=== PATIENT | female | born 1965 | race Caucasian/White ===

== ENCOUNTER 2019-03-04 21:01 | Inpatient (IN) | payer OTHER ==
[2019-03-04 21:57] LABS: Basophils % 0.3 % (0-1.3); Eosinophils % 0.1 % (0-4.4); Hematocrit 44.4 % (36.0-45.0); Lymphocytes % 8.5 % (15.3-44.8); MPV 7.9 fL (7.6-11.3); Monocytes % 5.9 % (3.3-12.3); RBC Red Blood Cell Count 4.91 M/uL (3.86-4.86)
[2019-03-04 22:16] LABS: Protime INR 1.02
[2019-03-04 22:18] LABS: ALT/SGPT 30 U/L (12-78); AST/SGOT 19 U/L (15-37); Albumin 3.7 g/dL (3.4-5.0); Alkaline Phosphatase 114 U/L (45-117); BUN Blood Urea Nitrogen 9 mg/dL (7-18); Bicarbonate 31 mmol/L (21-32); Bilirubin Direct 0.1 mg/dL (0-0.2); Bilirubin Total 0.5 mg/dL (0.2-1.0); Glucose Level 114 mg/dL (74-106); NT PRO-BNP 177 pg/mL (<125); Potassium 3.7 mmol/L (3.5-5.1); Protein, Total 7.9 g/dL (6.4-8.2); Sodium Level 142 mmol/L (136-145); Troponin (Emerg Dept Use Only) < 0.02 ng/mL (0.0-0.045)
[2019-03-04 22:22] LABS: Urine Blood 1+ (NEG); Urine Glucose NEGATIVE (NEG); Urine Protein 1+ (NEG); Urine Specific Gravity 1.025 (1.005-1.030); Urine pH 5.5 (5.0-7.0)
[2019-03-04 22:22] LABS: Urine Bacteria <20 /HPF (<20); Urine Culture Reflex Order NOT NEEDED; Urine RBC NONE SEEN /HPF (NONE SEEN)
[2019-03-04] MEDS ORDERED: PROMETHAZINE 25 MG/ML VIAL ONE (22:27)
[2019-03-04 23:07] LABS: Blood Morphology Comment NOT SEEN (NOT SEEN); Platelet Estimate ADEQ
[2019-03-05] MEDS ORDERED: PIPER/TAZO/NS 3.375gm 3.375 GM/100 ML BAG ONE (00:05)
--- NOTE | 2019-03-05 00:06 | EDPHYS ---
Physician Documentation [facility] Name: Kindra Alvarez Age: 53 yrs Sex: Female : 1965 Arrival Date: 03/04/2019 Time: 21:02 Bed 14 Private MD: ED Physician Abdoulaye Lei HPI: 03/04 22:35 This 53 yrs old Female presents to ER via Ambulatory with complaints of snw Abdominal Pain. 22:35 The patient presents with abdominal pain in the upper abdomen. Onset: The snw symptoms/episode began/occurred gradually, 1 month(s) ago, and became persistent today. The symptoms do not radiate. Associated signs and symptoms: Pertinent positives: nausea. The symptoms are described as intermittent. Severity of pain: At its worst the pain was moderate severe. only over the past month. The patient has not recently seen a physician. SYSTEMS ADMIN: 21:05 LMP N/A - Post-menopause fc Historical: - Allergies: 21:21 No Known Allergies; fc - Home Meds: 21:21 None [Active]; fc - PMHx: 21:21 None; fc - PSHx: 21:21 ; fc - Immunization history:: Last tetanus immunization: up to date. - Social history:: Smoking status: Patient/guardian denies using tobacco, Patient/guardian denies using alcohol, street drugs. - Ebola Screening: : Patient negative for fever greater than or equal to 101.5 degrees Fahrenheit, and additional compatible Ebola Virus Disease symptoms Patient denies exposure to infectious person Patient denies travel to an Ebola-affected area in the 21 days before illness onset. ROS: 22:31 Constitutional: Negative for fever, chills, and weight loss, Eyes: Negative for injury, snw pain, redness, and discharge, ENT: Negative for injury, pain, and discharge, Neck: Negative for injury, pain, and swelling, Cardiovascular: Negative for chest pain, palpitations, and edema, Respiratory: Negative for shortness of breath, cough, wheezing, and pleuritic chest pain, Back: Negative for injury and pain, : Negative for injury, bleeding, discharge, and swelling, MS/Extremity: Negative for injury and deformity, Skin: Negative for injury, rash, and discoloration, Neuro: Negative for headache, weakness, numbness, tingling, and seizure, Psych: Negative for depression, anxiety, suicide ideation, homicidal ideation, and hallucinations. 22:31 Abdomen/GI: Positive for abdominal pain, nausea, of the epigastric area, right upper quadrant and left upper quadrant, Negative for radiation to back. Exam: 22:23 Constitutional: This is a well developed, well nourished patient who is awake, alert, snw and in no acute distress. Head/Face: Normocephalic, atraumatic. Eyes: Pupils equal round and reactive to light, extra-ocular motions intact. Lids and lashes normal. Conjunctiva and sclera are non-icteric and not injected. Cornea within normal limits. Periorbital areas with no swelling, redness, or edema. ENT: Nares patent. No nasal discharge, no septal abnormalities noted. Tympanic membranes are normal and external auditory canals are clear. Oropharynx with no redness, swelling, or masses, exudates, or evidence of obstruction, uvula midline. Mucous membranes moist. Neck: Trachea midline, no thyromegaly or masses palpated, and no cervical lymphadenopathy. Supple, full range of motion without nuchal rigidity, or vertebral point tenderness. No Meningismus. Chest/axilla: Normal chest wall appearance and motion. Nontender with no deformity. No lesions are appreciated. Cardiovascular: Regular rate and rhythm with a normal S1 and S2. No gallops, murmurs, or rubs. Normal PMI, no JVD. No pulse deficits. Respiratory: Lungs have equal breath sounds bilaterally, clear to auscultation and percussion. No rales, rhonchi or wheezes noted. No increased work of breathing, no retractions or nasal flaring. Back: No spinal tenderness. No costovertebral tenderness. Full range of motion. Skin: Warm, dry with normal turgor. Normal color with no rashes, no lesions, and no evidence of cellulitis. MS/ Extremity: Pulses equal, no cyanosis. Neurovascular intact. Full, normal range of motion. Neuro: Awake and alert, GCS 15, oriented to person, place, time, and situation. Cranial nerves II-XII grossly intact. Motor strength 5/5 in all extremities. Sensory grossly intact. Cerebellar exam normal. Normal gait. Psych: Awake, alert, with orientation to person, place and time. Behavior, mood, and affect are within normal limits. 22:23 Abdomen/GI: Inspection: obese Bowel sounds: normal, in all quadrants, Palpation: moderate abdominal tenderness, in the epigastric area, right upper quadrant and left upper quadrant. Vital Signs: 21:05 BP 158 / 96; Pulse 77; Resp 18; Temp 98.5(O); Pulse Ox 99% on R/A; Weight 90.72 kg (R); fc Height 5 ft. 5 in. (165.10 cm) (R); Pain 8/10; 22:30 BP 170 / 93; Pulse 63; Resp 16; Pulse Ox 97% on R/A; jb4 03/05 00:00 BP 127 / 78; Pulse 72; Resp 16; Pulse Ox 98% on R/A; jb4 01:00 BP 141 / 85; Pulse 71; Resp 16; Temp 99.1(O); Pulse Ox 97% on R/A; jb4 03/04 21:05 Body Mass Index 33.28 (90.72 kg, 165.10 cm) fc MDM: 03/04 21:44 Patient medically screened. snw 03/05 00:04 Data reviewed: vital signs, nurses notes. Data interpreted: Pulse oximetry: on room air snw is 97 %. Interpretation: normal. Counseling: I had a detailed discussion with the patient and/or guardian regarding: the historical points, exam findings, and any diagnostic results supporting the discharge/admit diagnosis, the presence of at least one elevated blood pressure reading (>120/80) during this emergency department visit, lab results, radiology results, the need for further work-up and treatment in the hospital. Physician consultation: Aparna Silveira MD was called at 00:05, was contacted at 00:05, regarding admission, to the telemetry unit. to the medical/surgical unit. 03/04 21:28 Order name: Basic Metabolic Panel; Complete Time: 22:21 snw 03/04 21:28 Order name: CBC with Diff; Complete Time: 23:09 snw 03/04 21:28 Order name: LFT's; Complete Time: 22:21 snw 03/04 21:28 Order name: Magnesium; Complete Time: 22:21 snw 03/04 21:28 Order name: NT PRO-BNP; Complete Time: 22:21 snw 03/04 21:28 Order name: PT-INR; Complete Time: 22:21 snw 03/04 21:28 Order name: Troponin (emerg Dept Use Only); Complete Time: 22:21 snw 03/04 21:28 Order name: XRAY Chest (1 view) formerly [facility] 03/04 21:54 Order name: Urine Microscopic Only; Complete Time: 22:22 mt 03/04 22:02 Order name: US Abdomen Limited snw 03/04 22:12 Order name: Manual Differential; Complete Time: 23:09 EDMS 03/04 22:19 Order name: Urine Dipstick--Ancillary (enter results); Complete Time: 22:31 fc 03/04 21:28 Order name: EKG; Complete Time: 21:30 snw 03/04 21:28 Order name: Cardiac monitoring; Complete Time: 21:50 snw 03/04 21:28 Order name: EKG - Nurse/Tech; Complete Time: 21:49 snw 03/04 21:28 Order name: IV Saline Lock; Complete Time: 21:49 snw 03/04 21:28 Order name: Labs collected and sent; Complete Time: 21:49 snw 03/04 21:28 Order name: O2 Per Protocol; Complete Time: 21:49 snw 03/04 21:28 Order name: O2 Sat Monitoring; Complete Time: 21:49 snw 03/04 21:54 Order name: Urine Dipstick-Ancillary (obtain specimen); Complete Time: 21:54 mt Administered Medications: 03/04 22:20 Drug: Phenergan 12.5 mg Route: IVP; Site: right antecubital; [facility] 22:50 Follow up: Response: No adverse reaction; Nausea is decreased [facility] 03/05 00:05 Drug: Zosyn 3.375 grams Route: IVPB; Infused Over: 60 mins; Site: right antecubital; 4 01:06 Follow up: Response: No adverse reaction; IV Status: Completed infusion; IV Intake: jb4 100ml Disposition: 03/05/19 00:04 Hospitalization ordered by Aparna Silveira for Inpatient Admission. Preliminary diagnosis are Cholecystitis, Essential (primary) hypertension. - Bed requested for Telemetry/MedSurg (Inpatient). - Status is Inpatient Admission. jb4 - Condition is Stable. - Problem is new. - Symptoms have worsened. UTI on Admission? No Signatures: Dispatcher [employer] EDMS Allison Lopez RN RN Kelly Swenson, TELEPHONE STATION INSTALLER-C TELEPHONE STATION INSTALLER-Csnw Marianela Hernandez, RN RN Franklin Campuzano, MIGEL RN jb4 [facility] Corrections: (The following items were deleted from the chart) 00:46 00:04 Hospitalization Ordered by Aparna Silveira MD for Inpatient Admission. Preliminary diagnosis is Cholecystitis; Essential (primary) hypertension. Bed requested for Telemetry/MedSurg (Inpatient). Status is Inpatient Admission. Condition is Stable. Problem is new. Symptoms have worsened. UTI on Admission? No. snw 02:17 00:46 03/05/2019 00:04 Hospitalization Ordered by Aparna Silveira MD for Inpatient jb Admission. Preliminary diagnosis is Cholecystitis; Essential (primary) hypertension. Bed requested for Telemetry/MedSurg (Inpatient). Status is Inpatient Admission. Condition is Stable. Problem is new. Symptoms have worsened. UTI on Admission? No. mw
--- NOTE | 2019-03-05 00:06 | ER ---
Nurse's Notes [facility] Name: Kindra Alvarez Age: 53 yrs Sex: Female : 1965 Arrival Date: 03/04/2019 Time: 21:02 Bed 14 Private MD: Diagnosis: Cholecystitis;Essential (primary) hypertension Presentation: 03/04 21:05 Presenting complaint: Patient states: that she has been having stomach issues on and fc off x 1 month. Then last night this particular episode started along with nausea then approx 1 hr ago she started to have vomiting and diarrhea. Pain is all over abd. Transition of care: patient was not received from another setting of care. Onset of symptoms was March 03, 2019 at 23:00. Risk Assessment: Do you want to hurt yourself or someone else? Patient reports no desire to harm self or others. Initial Sepsis Screen: Does the patient meet any 2 criteria? No. Patient's initial sepsis screen is negative. Does the patient have a suspected source of infection? No. Patient's initial sepsis screen is negative. Care prior to arrival: Medication(s) given: Pepto at 2030 and Gax Ex at 1900. 21:05 Method Of Arrival: Ambulatory fc 21:05 Acuity: KAREEM 3 fc OBSTETRICS NURSE: 21:05 LMP N/A - Post-menopause fc Historical: - Allergies: 21:21 No Known Allergies; fc - Home Meds: 21:21 None [Active]; fc - PMHx: 21:21 None; fc - PSHx: 21:21 ; fc - Immunization history:: Last tetanus immunization: up to date. - Social history:: Smoking status: Patient/guardian denies using tobacco, Patient/guardian denies using alcohol, street drugs. - Ebola Screening: : Patient negative for fever greater than or equal to 101.5 degrees Fahrenheit, and additional compatible Ebola Virus Disease symptoms Patient denies exposure to infectious person Patient denies travel to an Ebola-affected area in the 21 days before illness onset. Screenin:20 Abuse screen: Denies threats or abuse. Nutritional screening: No deficits noted. fc Tuberculosis screening: Fall Risk None identified. Assessment: 21:10 General: Appears in no apparent distress. uncomfortable, Behavior is calm, cooperative, jb4 appropriate for age. Pain: Complains of pain in epigastric area, right upper quadrant and left upper quadrant Pain does not radiate. Pain currently is 8 out of 10 on a pain scale. Quality of pain is described as pressure. Neuro: Level of Consciousness is awake, alert, obeys commands, Oriented to person, place, time, situation. Cardiovascular: Patient's skin is warm and dry. Respiratory: Airway is patent Respiratory effort is even, unlabored, Respiratory pattern is regular, symmetrical. GI: Abdomen is non-distended, obese, Bowel sounds present X 4 quads. Abd is soft and non tender X 4 quads. Reports diarrhea, nausea, vomiting. : No signs and/or symptoms were reported regarding the genitourinary system. EENT: No signs and/or symptoms were reported regarding the EENT system. Derm: Skin is intact, Skin is pink, warm \T\ dry. Musculoskeletal: Circulation, motion, and sensation intact. 22:30 Reassessment: Patient appears in no apparent distress at this time. Patient and/or jb4 family updated on plan of care and expected duration. Pain level reassessed. Pt is resting with eyes closed respirations even and unlabored, nos/s of pain or distress noted at this time. Patient states feeling better. 03/05 00:00 Reassessment: Patient appears in no apparent distress at this time. No changes from [facility] previously documented assessment. Patient and/or family updated on plan of care and expected duration. Pain level reassessed. Patient states feeling better. 01:00 Reassessment: Patient appears in no apparent distress at this time. Patient and/or jb4 family updated on plan of care and expected duration. Pain level reassessed. Patient is alert, oriented x 3, equal unlabored respirations, skin warm/dry/pink. Vital Signs: 03/04 21:05 BP 158 / 96; Pulse 77; Resp 18; Temp 98.5(O); Pulse Ox 99% on R/A; Weight 90.72 kg (R); fc Height 5 ft. 5 in. (165.10 cm) (R); Pain 8/10; 22:30 BP 170 / 93; Pulse 63; Resp 16; Pulse Ox 97% on R/A; jb4 03/05 00:00 BP 127 / 78; Pulse 72; Resp 16; Pulse Ox 98% on R/A; jb4 01:00 BP 141 / 85; Pulse 71; Resp 16; Temp 99.1(O); Pulse Ox 97% on R/A; jb4 03/04 21:05 Body Mass Index 33.28 (90.72 kg, 165.10 cm) ED Course: 03/04 21:02 Patient arrived in ED. am2 21:05 Arm band placed on Patient placed in an exam room, on a stretcher. fc 21:05 Patient has correct armband on for positive identification. Placed in gown. Bed in low fc position. Call light in reach. Pulse ox on. NIBP on. 21:19 Triage completed. fc 21:27 Kelly Swenson FNP-C is PHCP. snw 21:27 Abdoulaye Lei MD is Attending Physician. snw 21:34 Franklin Campuzano RN is Primary Nurse. jb4 22:11 XRAY Chest (1 view) In Process Unspecified. EDMS 22:58 US Abdomen Limited In Process Unspecified. EDMS 22:58 Ultrasound completed. Patient tolerated well. sg3 03/05 00:04 Aparna Silveira MD is Hospitalizing Provider. snw 01:30 No provider procedures requiring assistance completed. Patient admitted, IV remains in jb4 place. Administered Medications: 03/04 22:20 Drug: Phenergan 12.5 mg Route: IVP; Site: right antecubital; jb4 22:50 Follow up: Response: No adverse reaction; Nausea is decreased jb4 03/05 00:05 Drug: Zosyn 3.375 grams Route: IVPB; Infused Over: 60 mins; Site: right antecubital; jb4 01:06 Follow up: Response: No adverse reaction; IV Status: Completed infusion; IV Intake: jb4 100ml Intake: 01:06 IV: 100ml; Total: 100ml. jb4 Outcome: 00:04 Decision to Hospitalize by Provider. snw 01:30 Admitted to Tele accompanied by tech, via wheelchair, room 431, with chart, Report jb4 called to MIGEL Blue 01:30 Condition: stable 01:30 Discharge instructions given to patient, Instructed on the need for admit, Demonstrated understanding of instructions. 02:17 Patient left the ED. jb4 Signatures: Dispatcher [employer] EDMS Kelly Swenson FNP-C MANAGER CULTURE-Csnw Marianela Hernandez, RN RN fc Franklin Campuzano RN RN jb4 Izzy Mora am Sujata Chen 3
--- NOTE | 2019-03-05 00:44 | P.HP ---
Certification for Inpatient Patient admitted to: Inpatient With expected LOS: >2 Midnights Practitioner: I am a practitioner with admitting privileges, knowledge of patient current condition, hospital course, and medical plan of care. Services: Services provided to patient in accordance with Admission requirements found in Title 42 Section 412.3 of the Code of Federal Regulations Patient History Date of Service: 03/05/19 Reason for admission: acute cholecystitis, cholelithiasis History of Present Illness: Ms Alvarez is a 53 years old woman with pretty benign past medical history, who start with recurrent episodes of abdominal pain since 1 month ago. The pain is localized on RUQ and epigastrium, worsening after having dinner most of the time. For the last 3 days, the pain has been worse. Last night, she also had nausea and vomiting. No fever or chills. Lab work shows leukocytosis 11.8K, and 5% bandemia, normal transaminases, bili and alk phos. Abdominal US remarkable for thickening gallbladder wall 8 mm, and multiple stones, official radiologist reading is still pending. Home medications list reviewed: Yes - Past Medical/Surgical History -: obesity -: - Family History Family History: Reviewed- Non-Contributory - Social History Smoking Status: Never smoker Alcohol use: Yes CD- Drugs: No Place of Residence: Home Review of Systems 10-point ROS is otherwise unremarkable Physical Examination - Physical Exam General: Alert, In no apparent distress HEENT: Atraumatic, PERRLA, Mucous membr. moist/pink, EOMI, Sclerae nonicteric Neck: Supple, 2+ carotid pulse no bruit, No LAD, Without JVD or thyroid abnormality Respiratory: Clear to auscultation bilaterally, Normal air movement Cardiovascular: Regular rate/rhythm, Normal S1 S2 Gastrointestinal: Normal bowel sounds, Tenderness (RUQ to palpation) Musculoskeletal: No tenderness Integumentary: No rashes Neurological: Normal speech, Normal strength at 5/5 x4 extr, Normal tone, Normal affect Lymphatics: No axilla or inguinal lymphadenopathy - Studies Laboratory Data (last 24 hrs) 03/04/19 21:45: PT 12.0, INR 1.02 03/04/19 21:45: WBC 11.8 H, Hgb 14.7, Hct 44.4, Plt Count 297 03/04/19 21:45: Sodium 142, Potassium 3.7, BUN 9, Creatinine 0.87, Glucose 114 H , Magnesium 2.0, Total Bilirubin 0.5, AST 19, ALT 30, Alkaline Phosphatase 114 Assessment and Plan - Problems (Diagnosis) (1) Acute cholecystitis Current Visit: Yes Status: Acute (2) Cholelithiasis Current Visit: Yes Status: Acute Qualifiers: Cholelithiasis location: gallbladder Cholecystitis presence: with cholecystitis Cholecystitis acuity: acute Biliary obstruction: without biliary obstruction Qualified Code(s): K80.00 - Calculus of gallbladder with acute cholecystitis without obstruction (3) Mildly obese Current Visit: Yes Status: Acute - Plan Ms Alvarez will be admitted to the hospital due to cholecystitis due to cholelithiasis. Will start empiric antibiotics, keep her NPO, IV fluids and symptomatic medication for nausea and pain. Consult Dr Kamara. - Advance Directives Does patient have a Living Will: No Does patient have a Durable POA for Healthcare: No - Code Status/Comfort Care Code Status Assessed: Yes Code Status: Full Code
[2019-03-05 02:06] VITALS: BMI 34.0
[2019-03-05] MEDS ORDERED: ACETAMINOPHEN 500 MG TAB PO PRN (02:09)
[2019-03-05] MEDS ORDERED: KETOROLAC 30 MG/ML INJ IV PRN (02:09)
[2019-03-05] MEDS ORDERED: KCL 20 MEQ/100 mL IVPB 20 MEQ/100 ML BAG IV SCH (02:25)
[2019-03-05] MEDS ORDERED: PROMETHAZINE 25 MG/ML VIAL IV PRN (02:36)
[2019-03-05] MEDS: METRONIDAZOLE 500mg IVPB 500 MG/100 ML BAG IV SCH ×2 (03:09→08:32)
[2019-03-05] MEDS: NA CHLORIDE 0.9% 1,000 ML IV SCH ×3 (03:09→16:32)
--- NOTE | 2019-03-05 08:46 | RAD REPORT ---
EXAM DESCRIPTION: RAD - Chest Single View - 03/04/2019 10:10 pm CLINICAL HISTORY: Abdominal pain COMPARISON: None. TECHNIQUE: AP portable chest image was obtained 2201 hours . FINDINGS: Lungs are clear. Hazy opacification over the left base secondary to overlying breast soft tissue and portable technique. Heart and vasculature are normal. No measurable pleural effusion and n o pneumothorax. No acute bony abnormality seen. No acute aortic findings suspected. IMPRESSION: No acute cardiopulmonary process.
[2019-03-05] MEDS ORDERED: CIPROFLOXACIN 400mg IV 400 MG/200 ML BAG IV SCH (09:00)
--- NOTE | 2019-03-05 09:24 | RAD REPORT ---
EXAM DESCRIPTION: US - Abdomen Exam Limited - 03/04/2019 10:58 pm CLINICAL HISTORY: 53 years Female ABD PAIN COMPARISON: None TECHNIQUE: Real-time sonography of the right upper abdomen was performed. FINDINGS: Echogenic foci with posterior shadowing are seen within the gallbladder consistent with ga llstones. Gallbladder wall measures 8 mm. No fluid is seen adjacent to the gallbladder. Common bile d uct measured 6 mm. Liver, pancreas and right kidney not evaluated. IMPRESSION: Cholelithiasis with gallbladder wall thickening. No extrahepatic biliary dilatation. Electronically signed by: Noa Nash MD 03/05/2019 12:39 AM CDT Due to temporary technical issues with the PACS/Fluency reporting system, reports are being signed by the in house radiologist as a courtesy to ensure prompt reporting. The interpreting radiologist is f ully responsible for the content of the report.
--- NOTE | 2019-03-05 12:52 | EKG ---
Test Date: 2019-03-04 Test Time: 21:46:49 Storage Architect: ISIDRO MEASUREMENT RESULTS: Intervals: Rate: 70 AR: 112 QRSD: 90 QT: 364 QTc: 393 [place]: P: 18 AR: 112 QRS: 16 T: 2 INTERPRETIVE STATEMENTS: Normal sinus rhythm T wave abnormality, consider anterior ischemia Abnormal ECG No previous ECG available for comparison Electronically Signed On 03-05-19 12:49:43 CDT by Avinash Gustafson
--- NOTE | 2019-03-05 14:12 | RAD REPORT ---
EXAM DESCRIPTION: NM - Hepatobiliary System Imagin - 03/05/2019 1:36 pm CLINICAL HISTORY: Abdominal pain, abnormal ultrasound COMPARISON: Ultrasound March 04 TECHNIQUE: The patient was administered 6.3 mCi Tc99m Choletec . Imaging of the right upper quadrant was performed initially for 60 minutes and extended an additional 90 minutes. FINDINGS: There is homogeneous uptake of radiopharmaceutical throughout the liver. There is no delay in visualization of the biliary tree or duodenum. The gallbladder never visualized is over the course of the examination. At the end of 2.5 hours there was no radiopharmaceutical remaining in the liver. No extravasation. IMPRESSION: Nonvisualization of the gallbladder. In a patient with cholelithiasis and gallbladder wa ll thickening, findings are consistent with an acute cholecystitis.
[2019-03-05] MEDS: PIPER/TAZO/NS 3.375gm 3.375 GM/100 ML BAG IVPB SCH (16:29)
--- NOTE | 2019-03-05 22:28 | PN ---
Date of Progress Note: 03/05/2019 Subjective: The patient seen and examined, chart reviewed, and case discussed with RN. The patient states her pain is better. Medications: List reviewed. Physical Examination: Vital Signs: Temperature 97.8, heart rate 71, blood pressure 125/78, respirations 18, O2 99% on room air. General: Awake, alert, and oriented x3, not in any acute distress, obese female. CV: S1, S2. Regular rate and rhythm. Peripheral pulses present. Respiratory: No wheezing. No stridor. No use of accessory muscles. Gastrointestinal: Abdomen is soft. Mild tenderness to palpation. No guarding or rigidity. Positiv e bowel sounds. Extremities: No clubbing, cyanosis, or edema. Neuro: Nonfocal. Cranial nerves 2-12 intact grossly. Speech is normal. Skin: No rashes. Normal skin turgor. Laboratory Data: Labs are pending. Imaging Studies: HIDA scan shows nonvisualization of the gallbladder. Findings were consistent with acute cholecystitis. Assessment And Plan: A 53-year-old female with: 1.Acute cholecystitis. Continue with IV antibiotics. Appreciate surgical input. HIDA scan showed nonvisualization, consistent with acute cholecystitis. We will continue pain control, keep n.p.o., a nd continue IV fluids. 2.Cholelithiasis with acute cholecystitis without biliary obstruction. Surgery on board. We will l ikely need cholecystectomy. 3.Obesity, BMI 34. 4.Hyperglycemia, likely acute phase reactant. 5.DVT prophylaxis, SCDs. Continue IV antibiotics. Follow up with Surgery recommendations. Continue IV antibiotics for pain c ontrol. /EARNEST Voice ID: [id number] Report ID: [id number]
[2019-03-06] MEDS: PIPER/TAZO/NS 3.375gm 3.375 GM/100 ML BAG IVPB SCH ×3 (01:27→16:23)
[2019-03-06 06:29] LABS: Absolute Lymphocytes (CBC) 1.5 K/uL (0.7-4.9); Basophils % 0.6 % (0-1.3); Eosinophils % 2.7 % (0-4.4); Hematocrit 39.8 % (36.0-45.0); MPV 8.3 fL (7.6-11.3); Monocytes % 8.3 % (3.3-12.3); RBC Red Blood Cell Count 4.36 M/uL (3.86-4.86)
[2019-03-06 06:42] LABS: Albumin 2.8 g/dL (3.4-5.0); Bilirubin Total 0.6 mg/dL (0.2-1.0); Potassium 3.7 mmol/L (3.5-5.1); Protein, Total 6.1 g/dL (6.4-8.2)
[2019-03-06] MEDS: NA CHLORIDE 0.9% 1,000 ML IV SCH ×2 (08:09→18:09)
[2019-03-06] MEDS ORDERED: FENTANYL CITR 100 MCG/2 ML ONE (10:20)
[2019-03-06] MEDS ORDERED: MIDAZOLAM HCL 2 MG/2 ML INJ ONE (10:20)
[2019-03-06] MEDS ORDERED: LIDOCAINE 1% MPF 5 ML VIAL ONE (10:20)
[2019-03-06] MEDS ORDERED: PROPOFOL 200 MG/20 ML VIAL IV ONE (10:20)
[2019-03-06] MEDS ORDERED: ROCURONIUM 50 MG/5 ML VIAL IV ONE (10:21)
[2019-03-06] MEDS ORDERED: BUPIVACA 0.25%/EPI 0.0005% MDV 50 ML VIAL ONE (11:09)
[2019-03-06] MEDS ORDERED: NA CHLORIDE 0.9% 1,000 ML ONE (12:00)
--- NOTE | 2019-03-06 12:40 | P.OP ---
Preoperative diagnosis: Cholecystitis Postoperative diagnosis: Cholecystitis Primary procedure: Laparoscopic Cholecystectomy Anesthesia: GETA + Local Estimated blood loss: <10cc Specimen: Gallbladder Findings: Significant intra-abdominal adhesions, encased GB Complications: None Transferred to: Recovery Room Condition: Good
[2019-03-06] MEDS ORDERED: KETOROLAC 30 MG/ML INJ ONE (12:42)
[2019-03-06] MEDS ORDERED: GLYCOPYRROLATE 0.2 MG/ML SYR ONE (12:42)
[2019-03-06] MEDS ORDERED: NEOSTIGMINE 1 MG/ML -10 ML VIAL ONE (12:48)
[2019-03-06] MEDS ORDERED: ONDANSETRON 4 MG/2 ML VIAL ONE (12:48)
[2019-03-06] MEDS ORDERED: HYDROCODONE/APAP 7.5/325 MG TAB PO PRN (13:07)
[2019-03-06] MEDS: MEPERIDINE HCL 25 MG/0.5 ML ONE ×2 (13:15→13:20)
[2019-03-06] MEDS ORDERED: POTASSIUM CL SA 10 MEQ TAB PO ONE (16:30)
--- NOTE | 2019-03-06 19:56 | PN ---
Date of Progress Note: 03/06/2019 Subjective: The patient seen and examined. Chart reviewed and case discussed with RN and Dr. Gallo cox. The patient went for gallbladder surgery today and did well, did have multiple adhesions in case gallbladder. Medications: List reviewed. Physical Examination: Vital Signs: Temperature 97.4, heart rate 67, blood pressure 144/89, respirations 16, O2 97% on room air. General: Awake, alert, oriented x3. Obese female. No acute distress. CV: S1 and S2. No murmurs. Respiratory: Moving air well bilaterally. No wheezing. Gastrointestinal: Abdomen is soft, nontender, nondistended. Positive bowel sounds. No guarding or rigidity. Extremities: No clubbing, cyanosis, or edema. Neurologic: Nonfocal. Laboratory Data: Sodium 145, potassium 3.7, chloride 110, CO2 28, BUN 11, creatinine 0.69, glucose 8 5, calcium 8.1. WBC 6.1, H and H 13.2 and 39.8, platelets 256, neutrophils 63%. Assessment And Plan: A 53-year-old female with: 1.Acute cholecystitis status post laparoscopic cholecystectomy postoperative day #0. Surgery recomm ends observing the patient further due to the nature of her gallbladder disease. We will continue wi th Zosyn. Continue pain control and IV fluids. 2.Cholelithiasis with acute cholecystitis without biliary obstruction, stable. 3.Obesity, BMI 34. Counseled. 4.Hyperglycemia likely due to acute phase reactant. 5.Deep venous thrombosis prophylaxis with sequential compression device. Plan: Discharge in a.m. if continues to improve. We will start on clear liquids tonight. /EARNEST Voice ID: [id number] Report ID: [id number]
--- NOTE | 2019-03-06 23:47 | OP ---
Date of Procedure: 03/06/2019 Surgeon: Mumtaz Kamara MD, Preoperative Diagnosis: Cholecystitis. Postoperative Diagnosis: Cholecystitis. Procedure Performed: Laparoscopic cholecystectomy. Anesthesia: General endotracheal plus local with 0.25% Marcaine. Estimated Blood Loss: Less than 10 cc. Specimen: Gallbladder. Findings: 1.Significant intra-abdominal adhesions. 2.Encased gallbladder. 3.Abnormal gallbladder anatomy with a long redundant cystic artery running anterior on the surface o f the gallbladder. Complications: None. Disposition: Transferred to recovery room in good condition. Procedure In Detail: After informed consent was obtained, the patient was brought to the operating r oom, prepped and draped in the usual sterile fashion. After adequate anesthesia achieved and a supra umbilical area was anesthetized with 0.25% Marcaine and sharply incised, a 5-mm 0-degree optical troc ar was introduced into the abdomen without evidence of complication. Insufflation was obtained to 15 mmHg at this time. There was no injury to vital structures upon entry into the abdomen. Additional trocar site was chosen in the epigastrium. This similarly was anesthetized and sharply incised. A 5-mm trocar was introduced into the abdomen without evidence of complication. Additional trocar site was chosen in the right upper quadrant, similarly anesthetized and sharply incised. A 5-mm trocar w as introduced into the abdomen without evidence of complication. The umbilical trocar was then up-si zed to 12 mm under direct visualization without evidence of complication. The patient was positioned head up, right-side up position. Ratcheted grasper was used to grasp the patient's gallbladder, neo rita towards the patient's right shoulder. There were significant intra-abdominal adhesions between t he omentum, stomach and the duodenum and the gallbladder. These were taken down using both blunt and sharp dissection after the duodenum and stomach were removed safely using sharp dissection without i ncident or complication. Electrocautery was then used to take much of the adipose tissue off the ant erior surface of the gallbladder, however, this was thick and firmly adherent and the gallbladder wal l had significant adiposity to it. There were inflammatory changes consistent with acute cholecystit is to the anterior surface of the gallbladder. The gallbladder had essentially been encased after it was exposed. However, dissection continued down and the gallbladder was found to be somewhat contra cted with a somewhat long neck higher up than the normal anatomic position of the gallbladder. Addit ional structure was noted to be running on the anterior surface of the gallbladder, near the medial a spect of the gallbladder, far away from the edge of the liver and had a long course down from the por ta region. These 2 structures were encircled down near the Leelee pouch of the gallbladder, which was found to be higher on the anterior surface of the gallbladder. After these were encircled, the w indow was created posterior to see the liver in the posterior window and no additional structures wer e noted to be entering. Therefore, these 2 structures were identified as both the cystic duct and cy stic artery and a critical view of safety was obtained in this position. Titanium clips were doubly placed on the proximal side and singly placed on the distal side of both cystic duct and cystic arter y. The cystic duct was then ligated using Endo Wandy and the cystic artery was ligated using LigaSu re device between the Endo Wandy. The gallbladder was then removed from the hepatic fossa without e vidence of complication. There was no bleeding. No additional hemostatic maneuvers required at this time. The gallbladder was then placed in EndoCatch bag, removed through the umbilical trocar, sent off for pathologic examination. The area was copiously irrigated multiple times. There was minimal spillage of bile and small stones at this point. These were all suctioned out quite easily prior to irrigation and after irrigation, there was no bile spillage and the abdomen was completely cleaned. The clips were found to be in good anatomic position. There was no bleeding from the hepatic fossa a t this point. The patient was then positioned in neutral position. Additional irrigation was used a nd suctioned out. The umbilical trocar was then removed. The gallbladder sent off for pathologic ex amination and the umbilical trocar site was closed using a Rakan-Sherrell suture passer and 0 Vicryl in interrupted fashion with good approximation of tissues. The abdomen was then completely desuffla mumtaz under direct visualization without evidence of complication. All skin incisions copiously irriga mumtaz and closed with a 4-0 Monocryl in a running fashion. Dermabond was placed over top. The patient tolerated the procedure well without evidence of complications, transferred to PACU in good conditio n. All counts were correct at the end of the case. OLVIN/EARNEST Voice ID: [id number] Report ID: [id number]
[2019-03-07] MEDS: PIPER/TAZO/NS 3.375gm 3.375 GM/100 ML BAG IVPB SCH ×2 (01:00→08:26)
[2019-03-07] MEDS: NA CHLORIDE 0.9% 1,000 ML IV SCH (01:40)
[2019-03-07] MEDS: POTASSIUM CL SA 10 MEQ TAB PO ONE ×2 (09:36→09:58)
[2019-03-07 09:42] VITALS: O2SAT 99
[2019-03-07 12:57] VITALS: BP 115/76; TEMP 98.3
--- NOTE | 2019-03-08 15:03 | DS ---
Date of Discharge: 03/07/2019 Procedure: Laparoscopic cholecystectomy. Admitting Diagnoses: 1.Acute cholecystitis. 2.Cholelithiasis with acute cholecystitis without biliary obstruction. 3.Obesity, BMI 34. Discharge Diagnoses: 1.Acute cholecystitis, status post laparoscopic cholecystectomy. 2.Cholelithiasis with acute cholecystitis without biliary obstruction. 3.Obesity, BMI 34. 4.Hyperglycemia. Hospital Course: The patient is a 53-year-old female, who was admitted to the hospital with recurren t episodes of abdominal pain. The patient had leukocytosis with bandemia. Her abdominal ultrasound was remarkable for thickened gallbladder wall, multiple stones. HIDA scan was done, which was consis tent with acute cholecystitis. The patient was then taken to the OR for laparoscopic cholecystectomy by Dr. Kamara as mentioned above. The patient did well postoperatively. She was able to tolerate her diet. Her white blood cell count normalized. She was on IV antibiotics throughout her hospital stay. Her liver enzymes remained normal. The patient was then cleared for discharge. She was sent home in a stable condition. Activity: No driving or operating heavy machinery while on narcotics. Followup: Follow up with primary care physician or establish care within the next week or 2. Follow up with surgeon, Dr. Kamara in 7-14 days for wound check. Return to ER for worsening condition. Supplement Diet: With fat-soluble vitamins including D, E, A and K. Diet; bland diet. Avoid fried or fatty foods. Physical Examination: General: Awake, alert, and oriented x3. No acute distress. Obese female. CV: S1 and S2. No murmurs. Respiratory: Moving air well bilaterally. Gastrointestinal: Abdomen is soft, nontender, nondistended. Positive bowel sounds. Incision site c lean, dry, intact. Extremities: No clubbing, cyanosis, or edema. Neurologic: Nonfocal. Medications: As per medication reconciliation list. Total time spent discharging the patient was 42 minutes. /EARNEST Voice ID: [id number] Report ID: [id number]
== END 2019-03-07 13:20 | disposition home or self-care (01) | DRG 419 ==
LOC: ER 21:01 → ERHOLD 03-05 00:42 → 4TH 03-05 01:32
PROVIDERS: ADMIT Internal Medicine; ATTEND Internal Medicine
PROC: 0DNW4ZZ Release Peritoneum, Percutaneous Endoscopic Approach (ICD-10-PCS; 2019-03-06)
PROC: 0FT44ZZ Resection of Gallbladder, Percutaneous Endoscopic Approach (ICD-10-PCS; principal; 2019-03-06 10:30)
DX: K80.00 Calculus of gallbladder with acute cholecystitis without obstruction (principal); E66.9 Obesity, unspecified; Z68.34 Body mass index [BMI] 34.0-34.9, adult; R73.9 Hyperglycemia, unspecified; K66.0 Peritoneal adhesions (postprocedural) (postinfection)
CPT/HCPCS: 36415; 71045; 76705; 78226; 80048; 80053; 80076; 81003; 81015; 83735; 83880; 84484; 85025; 85610; 88304; 93005; 96365; 96375; 99285; A9537; J0744; J2175; J2250; J2405; J2543; J2550; J2704; J2710; J3010; J7030